=== PATIENT | male | born 1985 ===

== ENCOUNTER 2020-10-20 10:30 | Inpatient (IN) | payer OTHER ==
[~2020-10-20] VITALS: Ht 165.1 cm; Wt 86.2 kg
[2020-10-20] MEDS ORDERED: COZAAR100 MG PO (13:36)
== END 2020-10-31 21:48 | disposition home or self-care (01) | DRG 330 ==
LOC: O/R 10-27 06:40 → SURH 10-27 08:00 → O/R 10-27 11:32 → SURH 10-27 15:37
PROVIDERS: ADMIT Colon & Rectal Surgery; ATTEND Colon & Rectal Surgery
PROC: 0DTP4ZZ Resection of Rectum, Percutaneous Endoscopic Approach (ICD-10-PCS; 2020-10-27)
PROC: 0DJD8ZZ Inspection of Lower Intestinal Tract, Via Natural or Artificial Opening Endoscopic (ICD-10-PCS; 2020-10-27)
PROC: 4A1BXSH Monitoring of Gastrointestinal Vascular Perfusion using Indocyanine Green Dye, External Approach (ICD-10-PCS; 2020-10-27)
PROC: 0DTN4ZZ Resection of Sigmoid Colon, Percutaneous Endoscopic Approach (ICD-10-PCS; principal; 2020-10-27 08:00)
DX: K57.32 Diverticulitis of large intestine without perforation or abscess without bleeding (principal); K55.1 Chronic vascular disorders of intestine; I10 Essential (primary) hypertension